=== PATIENT | female | born 1965 | race Caucasian/White ===

== ENCOUNTER → 2022-01-24 16:07 | Outpatient (BNVA) | payer OTHER, SELFPAY | PROVIDERS: PCP Internal Medicine; Visit Provider Physician Assistant | DX: Z13.89 Encounter for screening for other disorder (principal) ==

== ENCOUNTER → 2022-02-22 14:38 | Outpatient (BNVA) | payer OTHER, SELFPAY | PROVIDERS: PCP Internal Medicine; Visit Provider Physician Assistant Surgical | DX: E66.9 Obesity, unspecified (principal) ==

== ENCOUNTER 2022-03-09 06:38 | Outpatient (REF) | payer OTHER, SELFPAY ==
--- NOTE | ~2022-03-09 | XR_ITS ---
EXAMINATION: XR CHEST CLINICAL INFORMATION: Obesity COMPARISON: None TECHNIQUE: 2 views of the chest were obtained. FINDINGS: No significant abnormality is noted involving the heart, lungs, mediastinum, bony thorax or soft tissues. XR/XR chest 2V IMPRESSION: Unremarkable examination.
[2022-03-09 06:55] LABS: MANUAL DIFF FLAG NO
[2022-03-09 07:24] LABS: Basophils Percent Auto 0.6 % (0-2); Eosinophils Absolute Auto 0.2 X10*3/uL (0.0-0.4); Hematocrit 41.8 % (37.0-47.0); Imm Gran Abs Auto 0.01 X10*3/uL (0.00-0.03); Imm Gran Pct Auto 0.2 % (0.0-0.4); Lymphocytes Absolute Auto 2.3 X10*3/uL (1.2-4.9); Lymphocytes Percent Auto 42.8 % (20-40); Mean Corpuscular HGB Conc 33.5 g/dl (31.0-35.0); Mean Corpuscular Hemoglobin 28.6 pg (27.0-33.0); Mean Corpuscular Volume 85.3 fL (80.0-98.0); Mean Platelet Volume 10.5 fL (9.4-12.3); Monocytes Absolute Auto 0.7 X10*3/uL (0.1-1.2); Monocytes Percent Auto 12.3 % (2-11); Neutrophils Absolute Auto 2.2 x10*3/uL (2.0-8.3); Neutrophils Percent Auto 41.1 % (45-73); Platelet Count 316 X10*3/uL (160-400); Red Cell Distribution Width 13.9 % (11.0-16.0); White Blood Count 5.4 X10*3/uL (4.8-10.8)
--- NOTE | 2022-03-09 07:25 | ECG_ITS ---
Test Reason : e66.9 Blood Pressure : / mmHG Vent. Rate : 071 BPM Atrial Rate : 071 BPM P-R Int : 154 ms QRS Dur : 086 ms QT Int : 388 ms P-R-T Axes : 028 -02 038 degrees QTc Int : 421 ms Normal sinus rhythm Normal ECG No previous ECGs available Referred By: Rob Tinajero Electronically Signed By:JADEN JACKSON
[2022-03-09 07:31] LABS: Estimated Average Glucose 128 mg/dL; Hemoglobin A1c % 6.1 %
[2022-03-09 07:45] LABS: Alanine Aminotransferase 52 U/L (0-31); Albumin Level 4.8 g/dL (3.5-5.0); Alkaline Phosphatase 82 U/L (39-117); Anion Gap 16 (12-20); Aspartate Amino Transferase 41 U/L (5-31); Bilirubin Total 0.8 mg/dL (0.0-1.0); Blood Urea Nitrogen 26 mg/dL (9-16); C Reactive Protein 0.37 mg/dL (< or = 0.50); Carbon Dioxide 21 mmol/L (22-29); Chloride 105 mmol/L (96-108); Cholesterol 157 mg/dL; Estimated Glomerular Filt Rate > 60; Glucose Random 91 mg/dL (60-115); HDL Cholesterol 50 mg/dL; Iron 68 mcg/dL (30-160); LDL Cholesterol Calculated 93 mg/dl; Percent Iron Saturation 19 % (15-50); Potassium 4.1 mmol/L (3.3-5.1); Sodium 138 mmol/L (135-145); Total Iron Binding Capacity 357 mcg/dL (228-428); Total Protein 7.5 g/dL (6.5-8.0); Triglycerides 74 mg/dL; Unsaturated Iron Binding 289 ug/dL
[2022-03-09 08:08] LABS: Ferritin 145 ng/mL (10-250); Insulin 15 uU/mL (2-29); TSH reflex Free T4 2.83 uIU/mL (0.32-4.0); Vitamin D 25-OH Total 65.4 ng/mL (>30)
[2022-03-09 08:35] LABS: Folate > 20.0 ng/mL (> or = 4.0); Vitamin B12 > 2000 pg/mL (200-900)
[2022-03-10 13:56] LABS: Calcium (PTHI) 10.5 mg/dL (8.6-10.4); PTHI 59 pg/mL (16-77)
[2022-03-14 06:32] LABS: Zinc 105 mcg/dL (60-130)
[2022-03-14 12:22] LABS: Vitamin B1 15 nmol/L (8-30)
[2022-03-15 14:06] LABS: Vitamin A 50 mcg/dL (38-98)
== END 2022-03-09 06:39 | disposition home or self-care (01) ==
LOC: HO.XRAY 06:38
PROVIDERS: PCP Internal Medicine; Visit Provider Physician Assistant Surgical
DX: Z01.818 Encounter for other preprocedural examination (principal); E66.9 Obesity, unspecified
CPT/HCPCS: 36415; 71046; 80053; 80061; 82306; 82607; 82728; 82746; 83036; 83525; 83540; 83970; 84425; 84443; 84590; 84630; 85025; 86140; 93005

== ENCOUNTER → 2022-03-16 15:00 | Outpatient (BNVA) | payer OTHER, SELFPAY | PROVIDERS: PCP Internal Medicine; Visit Provider Counselor Mental Health | DX: F33.0 Major depressive disorder, recurrent, mild (principal) | CPT/HCPCS: 90791 ==

== ENCOUNTER → 2022-03-27 10:35 | Outpatient (BNVA) | payer OTHER, SELFPAY | PROVIDERS: PCP Internal Medicine; Visit Provider Dietitian, Registered | DX: E66.9 Obesity, unspecified (principal) | CPT/HCPCS: 97802 ==

== ENCOUNTER 2022-03-28 09:55 | Outpatient (REF) | payer OTHER, SELFPAY ==
[2022-04-01 14:11] LABS: H Pylori Breath Test Negative (Negative)
== END 2022-03-28 09:56 | disposition home or self-care (01) ==
LOC: HO.LNP 09:55
PROVIDERS: Visit Provider Physician Assistant Surgical
DX: Z11.0 Encounter for screening for intestinal infectious diseases (principal)
CPT/HCPCS: 83013

== ENCOUNTER 2022-04-19 08:53 | Outpatient (REF) | payer OTHER, SELFPAY ==
--- NOTE | ~2022-04-19 | US_ITS ---
EXAMINATION: US COMPLETE ABDOMEN WITH LIVER ELASTOGRAPHY CLINICAL INFORMATION: Obesity COMPARISON: None. TECHNIQUE: Real-time imaging of the abdominal viscera. Noninvasive ultrasound liver fibrosis assessment is performed using Samira ElastPQ point quantification shear wave elastography (2D-SWE) with a C5-2 MHz transducer. Multiple elastography samples are obtained. FINDINGS: PANCREAS: The visualized pancreatic head and part of the body body are normal in appearance. The remainder of the pancreas is obscured from visualization by the overlying bowel gas. ABDOMINAL AORTA: The proximal, middle, and distal aortic segments are normal in caliber. INFERIOR VENA CAVA: Visualized portions are normal. LIVER: Normal. The liver demonstrates normal size, contour and increased echogenicity. No focal lesion or intrahepatic biliary duct dilatation. The right lobe measures 14.9 cm in length. The left lobe measures 9.0 cm in length. Portal flow is hepatopedal Shear wave liver elastography median stiffness is 2.13 m/s (reference: normal median stiffness is 1.3 m/s or less). IQR/median stiffness to assess sampling precision is 0.04 (reference: good quality data set is IQR/median stiffness of 0.15 or less). GALLBLADDER: Normal. The gallbladder is physiologically distended without evidence of stones, sludge, polyps, wall thickening or pericholecystic fluid. COMMON BILE DUCT: Normal in caliber measuring 0.2 cm in diameter. RIGHT KIDNEY: Normal. No hydronephrosis. No renal calculi or focal parenchymal lesions. The kidney measures 11.4 cm in maximum dimension. LEFT KIDNEY: There is echogenic nonobstructive stone in upper/midpole measuring 0.3 x 0.2 x 0.6 cm. There is mild pelvic fullness. No focal parenchymal lesions. The kidney measures 10.0 cm in maximum dimension. SPLEEN: Normal. The spleen measures 8.9 cm in maximum dimension. FREE FLUID: None. US/US abdomen comp w elastography IMPRESSION: 1. Hepatic steatosis without focal lesion. Mild fullness left renal pelvis. There is nonobstructive echogenic stone upper/midpole measuring 0.6 cm. 2. Liver elastography: Median liver stiffness 2.13 m/s corresponding to cACLD (ruled in) REFERENCE: Society of Radiologists in Ultrasound Liver Stiffness Thresholds (2019): LIVER STIFFNESS THRESHOLDS: *Liver Stiffness equal or less than 1.3 m/s: High probability of being normal. *Liver Stiffness less than 1.7 m/s: In the absence of other known clinical signs, rules out compensated advanced chronic liver disease. *Liver Stiffness 1.7-2.1 m/s: Suggestive of compensated advanced chronic liver disease but need further test for confirmation. *Liver Stiffness over 2.1 m/s: Rules in compensated advanced chronic liver disease. *Liver Stiffness over 2.4 m/s: Suggestive of clinically significant portal hypertension. QUALITY OF DATA SET: *IQR/Median value equal or less than 0.15 implies a quality data set. *IQR/Median value over 0.15 implies a poor quality data set. SIGNIFICANT CHANGE FROM PRIOR EXAM: Significant change if liver stiffness measurement is 10% or greater from prior exam. OTHER CONSIDERATIONS: The stage of liver fibrosis may be overestimated in the setting of acute hepatitis, liver inflammation, elevated liver function tests, hepatic vascular congestion, obstructive cholestasis, non-fasting state, and infiltrative diseases such as amyloidosis and lymphoma. In some patients with NAFLD, the liver stiffness thresholds for compensated advanced chronic liver disease may be lower. In causes other than viral hepatitis and NAFLD, liver stiffness thresholds are not well established.
--- NOTE | ~2022-04-19 | FL_ITS ---
PROCEDURE: XR FLUOROSCOPY UPPER GI WITH AIR CLINICAL INFORMATION: Obesity. COMPARISON: None TECHNIQUE: Routine upper GI air-contrast study was performed in upright and lying position. FINDINGS: Following oral administration of thick barium and effervescent granules there is normal propagation of bolus from the oral cavity through the pharynx, esophagus into stomach without any evidence of obstruction, narrowing or stricture. On placing patient supine and prone lying the course, caliber and peristalsis of the stomach, the duodenal bulb and sweep is normal. The mucosal pattern of the stomach, duodenal bulb and the sweep is normal. There is mild gastroesophageal reflux but no hiatal hernia seen. FLUOROSCOPY TIME: 1.8 minutes. DOSE AREA PRODUCT: 125.673 uGy-m2 (microgray-meter squared). FL/FL upper GI w air IMPRESSION: Mild gastroesophageal reflux without hiatal hernia. Rest of the upper GI exam is unremarkable.
== END 2022-04-19 08:54 | disposition home or self-care (01) ==
LOC: HO.US 08:53
PROVIDERS: Visit Provider Surgery
DX: E66.9 Obesity, unspecified (principal)
CPT/HCPCS: 74246; 76705; 76981

== ENCOUNTER 2022-05-23 08:09 | Inpatient (IN) | payer OTHER, SELFPAY ==
[2022-05-10 09:40] VITALS: BMI 33.3
[2022-05-12 09:55] LABS: MANUAL DIFF FLAG NO
[2022-05-12 10:10] LABS: INTERNATIONAL NORM RATIO 1.3 (0.9-1.1)
[2022-05-12 10:13] LABS: Partial Thromboplastin Time 40.3 SEC (26.0-36.4)
[2022-05-12 10:15] LABS: Basophils Percent Auto 0.7 % (0-2); Eosinophils Absolute Auto 0.1 X10*3/uL (0.0-0.4); Eosinophils Percent Auto 3.3 % (0-4); Hematocrit 42.7 % (37.0-47.0); Imm Gran Abs Auto 0.01 X10*3/uL (0.00-0.03); Imm Gran Pct Auto 0.2 % (0.0-0.4); Lymphocytes Absolute Auto 1.8 X10*3/uL (1.2-4.9); Lymphocytes Percent Auto 42.9 % (20-40); Mean Corpuscular HGB Conc 32.8 g/dl (31.0-35.0); Mean Corpuscular Hemoglobin 28.3 pg (27.0-33.0); Mean Corpuscular Volume 86.3 fL (80.0-98.0); Mean Platelet Volume 10.7 fL (9.4-12.3); Monocytes Absolute Auto 0.6 X10*3/uL (0.1-1.2); Monocytes Percent Auto 15.1 % (2-11); Neutrophils Absolute Auto 1.6 x10*3/uL (2.0-8.3); Neutrophils Percent Auto 37.8 % (45-73); Platelet Count 265 X10*3/uL (160-400); Red Blood Count 4.95 X10*6/uL (4.20-5.50); Red Cell Distribution Width 14.4 % (11.0-16.0); White Blood Count 4.2 X10*3/uL (4.8-10.8)
[2022-05-12 10:30] LABS: Estimated Average Glucose 114 mg/dL; Hemoglobin A1c % 5.6 %
[2022-05-12 10:42] LABS: Alanine Aminotransferase 21 U/L (0-31); Albumin Level 4.6 g/dL (3.5-5.0); Alkaline Phosphatase 74 U/L (39-117); Anion Gap 16 (12-20); Aspartate Amino Transferase 24 U/L (5-31); Bilirubin Total 1.6 mg/dL (0.0-1.0); Blood Urea Nitrogen 21 mg/dL (9-16); C Reactive Protein 0.36 mg/dL (< or = 0.50); Calcium 9.6 mg/dL (8.4-10.2); Carbon Dioxide 22 mmol/L (22-29); Chloride 107 mmol/L (96-108); Cholesterol 168 mg/dL; Creatinine Clr Calc Pharmacy 94.2; Estimated Glomerular Filt Rate > 60; Glucose Random 98 mg/dL (60-115); HDL Cholesterol 48 mg/dL; LDL Cholesterol Calculated 104 mg/dl; Sodium 141 mmol/L (135-145); Total Protein 7.2 g/dL (6.5-8.0); Triglycerides 82 mg/dL
--- NOTE | 2022-05-20 15:31 | MHC.SHP ---
Pre-Procedural Eval Section A Date of Service: 05/20/22 The patient is an INPATIENT: Yes The History & Physical has been completed within 30 days and I have reviewed it.: Yes Section B Chief Complaint: obesity Relevant Family History (Specify if Yes): No Relevant Social History: None Present Medications: None Medical History: No relevant PMH History of Previous Operations: No relevant previous surgery Allergies: Allergies Allergy/AdvReac Type Severity Reaction Status Date / Time Penicillins AdvReac Severe Rash Verified 05/10/22 09:20 Review of Systems Sugical H&P ROS: Negative: Constitution, Cardiovascular, Respiratory, Neurological, Psychiatric, Hem-Onc, Allergic/Immunologic, Gastrointestinal, Genitourinary, Musculoskeletal, Integumentary, Endocrine and Eyes/Ears/Nose/Throat Exam Surgical H&P Exam: Normal: HEENT, Normal: Heart, Normal: Lungs, Normal: Extremities, Normal: Abdomen, Normal: Skin and Normal: Neurological Plan Diagnosis/Plan: Unchanged I have reviewed the history and physical and performed a pertinent physical examination on my patient. No changes have occurred unless specified.
[2022-05-22 14:27] LABS: COVID-19 Test Negative (Negative); IDNOW Serial# 9DD0AD1C
[2022-05-23] VITALS (12 sets, daily range): BP systolic 106–146; BP diastolic 59–83; PULSE 68–93; RESP 12–18; TEMP 36–36.8; O2SAT 94–98
[2022-05-23] MEDS: Lactated Ringers 1,000 ML 999 ML IV (09:01)
--- NOTE | 2022-05-23 09:44 | P.CONAN_ITS ---
HPI - Anesthesia Eval Consult details Narrative: 56 yo female patient for EGD, laparoscopic sleeve gastrectomy, possible diaphragmatic hernia repair, possible ventral hernia repair, possible open PMFSH Active Problems Active Problems: All Active Problems (Updated 05/10/22 @ 09:55 by Chaparrita Arredondo RN) HTN (hypertension) (Acute) GERD (gastroesophageal reflux disease) (Acute) Depression (Acute) Anxiety (Acute) Hypertriglyceridemia (Acute) Obesity (Acute) BMI 39.0-39.9,adult (Acute) BMI 37.0-37.9, adult (Acute) Major depressive disorder, recurrent, mild (Acute) Pre-op evaluation (Acute) Denies NIKUNJ. Snores but no sleep study Past Medical History Medical History Anxiety and depression History of COVID-19 HTN (hypertension) Obesity Seasonal asthma Family History Family history of problems with anesthesia: No Surgical History Surgical History Hx of colonoscopy Hx of oral surgery Hx of rhinoplasty Hx of tonsillectomy History of Problems with Anesthesia: No Social History Social History Are you a primary child care supervisor to a significant other at home: No Do you presently have visiting nurse or other home services: No Patient Tobacco Use Status: Never used Tobacco Use of substances other than those prescribed or required for medical reasons: No Have you been hit, kicked, punched, or otherwise hurt by someone within the past year? If so, by whom?: No Are you DNR?: No Advance Directives: No Advance Directives Information Provided: Yes Advance Directives on File: No Recently lost weight without trying: No How much weight loss: 34pounds or more Eating poorly because of decreased appetite: No Nutrition screen score: 4 Nutrition Risks: No Nutritional Risk Patient : No Meds Allergies Allergy/AdvReac Type Severity Reaction Status Date / Time Penicillins AdvReac Severe Rash Verified 05/23/22 09:31 Active Medications: Current Medications Albuterol Sulfate (Albuterol Sulfate (0.083%) 2.5 Mg/3 Ml Vial.Neb) 2.5 mg INHALE ONCE PRN PRN Reason: Shortness of Breath/Wheezing Lactated Ringer's (Lr) 1,000 mls @ 999 mls/hr IV .Q1H1M [facility] Stop: 05/23/22 10:15 Last Admin: 05/23/22 09:01 Dose: 999 mls/hr Lactated Ringer's (Lr) 1,000 mls @ 50 mls/hr IVCONT .Q20H [facility] Home Medications Medication Instructions Recorded Confirmed Last Taken Type biotin 1,000 mcg chewable tablet 1,000 mcg PO DAILY 01/26/22 05/10/22 05/08/22 History calcium carbonate 600 mg calcium 600 mg PO DAILY 01/26/22 05/10/22 05/08/22 Hist ory (1,500 mg) tablet (Calcium) cholecalciferol (vitamin D3) 25 25 mcg PO DAILY 01/26/22 05/10/22 05/08/22 History mcg (1,000 unit) capsule desvenlafaxine succinate 50 mg 50 mg PO DAILY 01/26/22 05/10/22 Unknown History tablet,extended release 24 hr (Pristiq) diphenhydramine HCl 50 mg capsule 50 mg PO BEDTIME 01/26/22 05/10/22 Unknown History (NightTime Sleep Aid (diphenhydramine)) fluticasone 500 mcg-salmeterol 50 1 inh inhalation BID 01/26/22 05/10/22 Unknown History mcg/dose blistr powdr for inhalation (Advair Diskus) lisinopril 2.5 mg tablet 2.5 mg PO DAILY 01/26/22 05/10/22 Unknown History omega-3 fatty acids 1,000 mg 1,000 mg PO DAILY 01/26/22 05/10/22 05/08/22 History capsule Exam Exam Date and Time: May 23, 2022 0945 Height,Weight and Vital Signs: Height 5 ft 9 in Weight 102.512 kg Last Vital Signs Temp 97.9 F 05/23/22 09:08 Pulse 74 05/23/22 09:08 Resp 18 05/23/22 09:08 BP 116/75 05/23/22 09:08 Pulse Ox 96 05/23/22 09:08 O2 Del Method 05/23/22 09:08 Pertinent Lab Results Pertinent Lab Results: Laboratory Tests 05/12/22 05/12/22 05/12/22 09:47 09:54 09:54 WBC 4.2 L RBC 4.95 Hgb 14.0 Hct 42.7 MCV 86.3 MCH 28.3 MCHC 32.8 RDW 14.4 Plt Count 265 MPV 10.7 Immature Gran % (Auto) 0.2 Neut % (Auto) 37.8 L Lymph % (Auto) 42.9 H Sac % (Auto) 15.1 H Eos % (Auto) 3.3 Baso % (Auto) 0.7 Lymph # (Auto) 1.8 Sac # (Auto) 0.6 Eos # (Auto) 0.1 Baso # (Auto) 0.0 Abs Immat Gran (auto) 0.01 Absolute Neuts (auto) 1.6 L Absolute Nucleated RBC 0.000 Nucleated RBC % (auto) 0.0 PT 15.0 H INR 1.3 H APTT 40.3 H Sodium Potassium Chloride Carbon Dioxide Anion Gap BUN Creatinine Estim Creat Clear Calc Estimated GFR Random Glucose Estimat Average Glucose Hemoglobin A1c % Calcium Total Bilirubin AST ALT Alkaline Phosphatase C-Reactive Protein Total Protein Albumin Triglycerides Cholesterol LDL Cholesterol, Calc HDL Cholesterol TSH COVID-19 (JESSICA) COVID-19 Clin Com Blood Type B Positive Antibody Screen NEGATIVE 05/12/22 05/12/22 05/22/22 09:54 09:54 14:00 WBC RBC Hgb Hct MCV MCH MCHC RDW Plt Count MPV Immature Gran % (Auto) Neut % (Auto) Lymph % (Auto) Sac % (Auto) Eos % (Auto) Baso % (Auto) Lymph # (Auto) Sac # (Auto) Eos # (Auto) Baso # (Auto) Abs Immat Gran (auto) Absolute Neuts (auto) Absolute Nucleated RBC Nucleated RBC % (auto) PT INR APTT Sodium 141 Potassium 4.0 Chloride 107 Carbon Dioxide 22 Anion Gap 16 BUN 21 H Creatinine 0.86 Estim Creat Clear Calc 94.2 Estimated GFR > 60 Random Glucose 98 Estimat Average Glucose 114 Hemoglobin A1c % 5.6 Calcium 9.6 Total Bilirubin 1.6 H AST 24 D ALT 21 Alkaline Phosphatase 74 C-Reactive Protein 0.36 Total Protein 7.2 Albumin 4.6 Triglycerides 82 Cholesterol 168 LDL Cholesterol, Calc 104 HDL Cholesterol 48 TSH 2.60 COVID-19 (JESSICA) Negative COVID-19 Clin Com See Note Blood Type Antibody Screen Airway Mallampati Class: II TM Dist: >3cm Neck ROM: Full Loose/Missing/Broken Teeth: No (Patient denies broken or loose teeth ) Heart: RRR Lungs: CTAB Assessment and Plan Assessment Anesthesia Assessment: Anesthesia Plan Discussed and Chart Reviewed Final Anesthetic Review Family History of Problems with Anesthesia: No History of Problems with Anesthesia: No NPO: Yes ASA Class: III Final Preanesthetic Review: No Changes in Pt Med Stat, Meds/Allgs Chart Reviewed, Consent Obtained/Reviewed and Anes Risks/Benef Reviewed Patient Risk: Intermediate Procedure Risk: Intermediate Assessment/Block/Sedation in SS: Assess/Block/Sedation-SS Anesthetic Plan Anesthetic Plan: GA Disposition: Standard PACU and Inp. Admit - Standard Bed
--- NOTE | 2022-05-23 10:45 | PM.PNGS ---
Subjective Subjective Date of Service: 05/24/22 Interval history: Patient has mild incisional pain, but was able to ambulate and use the incentive spirometer. She is tolerating phase 1 bariatric diet Physical Exam Vital Signs: Vital Signs: Last Vital Signs Temp 97.9 F 05/23/22 09:08 Pulse 74 05/23/22 09:08 Resp 18 05/23/22 09:08 BP 116/75 05/23/22 09:08 Pulse Ox 96 05/23/22 09:08 O2 Del Method 05/23/22 09:08 BMI result Body Mass Index 33.3 GI: Inspection: Yes normal to inspection, Yes incision (dry, clean and intact) and Yes obesity Extrem: Right lower extremity: normal to inspection (no calf tenderness) Left lower extremity: normal to inspection (no calf tenderness) Objective Data Active Medications Albuterol Sulfate (Albuterol Sulfate (0.083%) 2.5 Mg/3 Ml Vial.Neb) 2.5 mg INHALE ONCE PRN PRN Reason: Shortness of Breath/Wheezing Fentanyl (Fentanyl Citrate/Pf 100 Mcg/2 Ml Vial) 25 mcg IVPUSH Q5M PRN; Protocol PRN Reason: Pain, Moderate (Pain Scale 4-6 Hydromorphone HCl (Hydromorphone Hcl 0.5 Mg/0.5 Ml Syringe) 0.25 mg IVPUSH Q5M PRN; Protocol PRN Reason: Pain, Severe (Pain Scale 7-10) Lactated Ringer's (Lr) 1,000 mls @ 50 mls/hr IVCONT .Q20H [facility] Promethazine HCl 6.25 mg/ (Sodium Chloride) 50.25 mls @ 201 mls/hr IV ONCE PRN PRN Reason: Nausea and Vomiting Ondansetron HCl (Ondansetron Hcl 4 Mg/2 Ml Vial) 4 mg IVPUSH ONCE PRN PRN Reason: Nausea and Vomiting Labs CBC & Chem 7: 05/24/22 05:35 05/24/22 05:35 Labs: Laboratory Results - last 24 hr 05/22/22 14:00 COVID-19 (JESSICA) Negative COVID-19 Clin Com See Note Procedures Date of Service Date of Service: 05/24/22 Progress Note: A&P Assessment and plan (1) Obesity: Status: Acute Assessment and Plan: s/p laparoscopic sleeve gastrectomy and gastropexy Doing well Check am labs. If OK, will discharge home? (2) BMI 32.0-32.9,adult: Status: Acute (3) HTN (hypertension): Status: Acute (4) GERD (gastroesophageal reflux disease): Status: Acute (5) Depression: Status: Acute (6) Anxiety: Status: Acute (7) Hypertriglyceridemia: Status: Acute (8) Asthma: Status: Acute (9) Liver fibrosis: Status: Acute (10) Nephrolithiasis: Status: Acute (11) S/P laparoscopic sleeve gastrectomy: Status: Acute Time Spent With Patient Time: Total time spent is greater than 50% in coordination of care (as documented) at patient's floor/unit and/or counseling patient: Quality Stroke Does the patient have a stroke diagnosis?: No VTE Prior VTE?: No VTE Risk Level:: Surgical - moderate VTE Device Contraindication: N/A - Device Ordered VTE Drug Contraindication: Treatment Not Indicated
--- NOTE | 2022-05-23 10:47 | P.BOP_ITS ---
Brief Operative Note Date of Service: 05/23/22 Pre-op diagnosis: Severe obesity with comorbidities (see below) Post-op diagnosis: same Procedure: INITIAL PATIENT BMI ON PRESENTATION AT OUR OFFICE: 43.3 kg/m2 LAST BMI BEFORE SURGERY: 32.8 kg/m2 COMORBIDITIES: hypetension, GERD, liver fibrosis, asthma, depression, anxiety, nephrolithiasis ?The patient presented to the Weight Management Program with significant obesity that was negatively impacting the patient's comorbidities as listed above.? The program is a phased program with a special focus on preoperative medical weight management to promote substantial weight loss and prepare the patients for the second phase of the program: bariatric surgery. The patient participated in an intensive weekly lifestyle ?intervention and exercise program during which the patient ?has lost between the initial office visit and the last preoperative visit 43.3lbs, or 16.36% of initial actual body weight. It was deemed appropriate for the patient to now have bariatric surgery. In light of the c urrent Covid-19 pandemic and the well documented strong association of obesity and increased risk of worse outcomes if infected with Covid-19 (REFERENCES: https://pubmed.ncbi.nlm.nih.gov/46381542/ ,? https://pubmed.ncbi.nlm.nih.gov/40421006/ ), any delay in undergoing bariatric surgery may lead to the patient's worsening health condition and increased?risk of more severe Covid-19 disease if infected. In addition a recent?study from [facility] published in [employer] on 09/26/2021 ([email or web address].pdf) found that, among patients with obesity, substantial weight loss achieved with surgery was associated with improved outcomes of COVID-19 infection. The findings suggest that obesity can be a modifiable risk factor for the severity of COVID-19 infection. In addition, the patient met the BMI-criteria for bariatric surgery based on the BMI on initial presentation. The patient should not be penalized for achieving such weight loss because ?it is not sustainable long-term without surgical intervention and it was achieved in preparation for bariatric surgery ?under my direction and based on my published research ([email or web address]).[email or web address] and? https://www.soard.org/article/D7103-9343(49)70737-X/pdf ) ?that a 10% preoperative weight loss improves long-term weight loss after surgery and reduces perioperative complications.? Insurance carriers such as [facility] have endorsed my recommendations ?and have included in their policies criteria to include a 10% preoperative weight loss requirement. PROCEDURE: Esophago-gastroscopy, llaparoscopic sleeve gastrectomy and laparoscopic gastropexy INDICATIONS: This is a 56 year-old female who was electively scheduled for laparoscopic, possibly open sleeve gastrectomy. The risks and complications of the procedure were discussed with the patient in advance, particularly the possibility of ; pulmonary embolism; staple line leak; bleeding; GERD; cardiac, pulmonary, or renal complications; as well as long-term problems such as insufficient weight loss, vitamin deficiency, strictures, or ulcers. The patient understood all the risks, and was in agreement to proceed with surgery. DESCRIPTION OF PROCEDURE: After informed consent was obtained from the patient, the patient was given preoperative antibiotics, and was transferred to the operating room. After successful induction of general anesthesia, pneumatic compression devices were placed on both lower extremities. An upper endoscopy was performed next. The oropharynx and esophagus appeared to be within normal limits. There was no diaphragmatic hernia present consistent with the findings of the preoperative upper GI. The stomach was entered. Then after all fluid and air were suctioned and the stomach was fully decompressed, the scope was withdrawn and secured in the mid esophagus. The patient was then prepped and draped in the usual sterile manner, and abdominal access was established at the right upper quadrant with the Rosa technique. A 12 mm blunt port was inserted, and the abdomen was insufflated with CO2 to a pressure of 15 mmHg. Under direct visualization, additional ports were placed, specifically two 5 mm Versi-step ports to the left upper quadrant, and a 5 mm Versi-Step port to the right upper quadrant. 1% lidocaine plain was used to infiltrate all port sites as well as all fascia defects. Using the EndoClose suture passer device, I placed a #1 Polysorb tie across the falciform ligament in order to retract it up against the abdominal wall and prevent injury of the ligament with our instruments during the procedure. Following that, the patient was placed in a steep reverse Trendelenburg position. An additional 5 mm port was placed to the right flank for the Mediflex retractor that was used to retract the left lobe of the liver. The gastro-esophageal fat pad was opened with the ultrasonic device (Thunderbeat, Olympus) and the anterior esophagus and hiatus were exposed. The angle of His was opened with the ultrasonic device the fundus of the stomach from any diaphragmatic and splenic attachments. I then opened the gastrocolic ligament between the transverse colon and the greater curvature of the stomach with the ultrasonic device to enter the lesser sac and facilitate the ligation of the short gastric vessels. I started at a mid-point along the greater curvature and using the Thunderbeat, all short gastric vessels were divided all the way to the angle of His until the left yeimi was completely dissected at its entirety. I then divided the gastro-colic ligament distally to a distance of about 3-4 cm proximal to the pylorus. The stomach was then divided transversely with one Endo GIOVANY-45 purple, one GIOVANY- 45 orange load and three GIOVANY-60 articulating orange loads using the AEON stapler and loads. Every effort was made that the gastric sleeve had a tubular shape and an even caliber throughout. Once the sleeve resection was completed, the staple line of the gastric sleeve was reinforced with Hemoclips. The resected stomach was retrieved without difficulty from the Rosa port. A gastropexy was then performed in order to prevent postoperative GERD and partial gastric volvulus. Several interrupted 2.0 Surgidac sutures were placed between the sleeve's staple line and the previously divided greater omentum and gastro-colic ligament using the Endo-Stitch device. ?An upper endoscopy was performed. There was no narrowing at the GE junction. The scope was easily advanced all the way to the pylorus which was clearly visualized. There was no narrowing anywhere and the sleeve's caliber was even throughout. The sleeve's staple line was inspected and there was no evidence of ischemia, bleeding or dehiscence. At that point the gastroscope was withdrawn from the patient?s mouth while we were decompressing the bowel and the stomach from any remaining air. I looked into the lesser sac to see how the sleeve was situating and it was situating well. There was no bleeding from the staple line, spleen, or short gastric vessels. The Mediflex retractor was removed, and the undersurface of the liver was inspected and there was no bleeding. The patient was placed in supine position. I closed the fascial defect of the 12 mm port site with a figure of eight #1 Polysorb suture. Then 60ml of Ropivacaine plain with 10 mg of Dexamethasone were used to infiltrate the fascial closure as well as all skin incisions. A total of ml of Zynrelef was applied in the Rosa wound. At this point, the abdomen was deflated, all ports were removed under direct vision, and no bleeding was noted from any of the port sites. The skin incisions were irrigated with saline and were closed with 4-0 absorbable monofilament sutures. Steri-Strips and OpSites were used to cover all incisions. The patient was extubated and was transferred in stable condition to the recovery room for further care. I was present and performed all capellan parts of the procedure. Mr. Tinajero was the certified surgical tech/first assistant. There were no residents to assist with this case. Waylon Kumar MD, PhD, FACS Surgeon: Cristian Kumar MD Anesthesia: GETA, local and other (TAP block and Zynrelef) Was an Airborne And Air Delivery Specialist used for this Procedure?: No Airborne And Air Delivery Specialist: Rob Tinajero Estimated blood loss (mL): 10 Urine output (mL): 0 (No Phan to record) Pathology: other (Stomach) Condition: stable Disposition: PACU
[2022-05-23] MEDS: levoFLOXacin/D5W 500 MG/100 ML PIGGYBACK 100 MG IV (11:06)
--- NOTE | 2022-05-23 13:04 | P.DS_ITS ---
DS: Providers Provider Date of Service: 05/24/22 Date of admission: 05/23/22 08:09 Primary care physician: Unknown Physician DS: Diagnosis Discharge Diagnosis (1) Obesity: Status: Acute (2) BMI 32.0-32.9,adult: Status: Acute (3) HTN (hypertension): Status: Acute (4) GERD (gastroesophageal reflux disease): Status: Acute (5) Depression: Status: Acute (6) Anxiety: Status: Acute (7) Hypertriglyceridemia: Status: Acute (8) Asthma: Status: Acute (9) Liver fibrosis: Status: Acute (10) Nephrolithiasis: Status: Acute (11) S/P laparoscopic sleeve gastrectomy: Status: Acute DS: Summary Hospital Course Hospital Course: ADMITTING DIAGNOSIS: obesity, htn, anxiety, depression ? DISCHARGE DIAGNOSIS: same, s/p laparoscopic sleeve gastrectomy ? PAST SURGICAL HISTORY: rhinoplasty, tonsillectomy ? PROCEDURE: upper endoscopy, laparoscopic sleeve gastrectomy ? DISCHARGE SUMMARY: ? History of Present Illness: ? The patient is a?56 year-old woman with a BMI of?39 kg/m2 and associated co- morbidities as described above. The patient had extensive work-up,lost?38 lbs preoperatively and was electively scheduled for laparoscopic, possible open sleeve gastrectomy and gastropexy. Risks and complications of the surgery were discussed with the patient in advance, particularly the possibility of , pulmonary embolism, anastomotic leak, bleeding, bowel injury, GERD, cardiac, renal or pulmonary complications. The patient understood all the risks and was in agreement with the surgical plan. ? Hospital Course: ? The patient underwent an uneventful laparoscopic sleeve gastrectomy with gastropexy on the day of admission. Postoperatively, the patient was transferred to the surgical floor. The patient received IV Acetaminophen and IV dilaudid for pain control. Patient was started on bariatric phase 1 diet POD #0. On postoperative day one, the patient was feeling well without nausea, vomiting, fevers, or tachycardia. The patient had some mild incisional pain and the abdomen was soft. ? On the morning of postoperative day one, the patient was continued on 1 ounce of water or ice every half hour. During the day, the patient did fairly well, having some incisional pain, but able to ambulate adequately and to tolerate li quids well. ? Since the patient is doing well, we decided that the patient was ready to be discharged. The patient was given instructions to follow-up with me next week and to call my office for any fever over 101, persistent abdominal pain, nausea, vomiting, GERD, symptoms of DVT such as calf tenderness, or leg swelling, or pulmonary embolism such as chest pain or shortness of breath. The patient was also instructed to drink 40-60 ounces of liquids per day using the 1-ounce cups. The patient had been given prescriptions for Tylenol for pain, Zofran prn for nausea, and pantoprazole and carafate previously. The patient was encouraged to ambulate and use the incentive spirometer. The patient was allowed to shower, but no baths, and encouraged to stay active at home. All of these instructions were given to the patient personally. All questions were answered and the patient understood all instructions, the instructions were also given to the patient in print. Time Spent with Patient Time attestation: Total time spent providing and/or coordinating discharge services: Discharge coordination time: Less than 30 minutes Quality: Safe Use of Opioids Does Pt have an Active Cancer Diagnosis on the Problem List?: No Quality: Stroke Does the patient have a stroke diagnosis?: No Physical Exam Vital Signs: Vital Signs: Last Vital Signs Temp 97.9 F 05/23/22 09:08 Pulse 74 05/23/22 09:08 Resp 18 05/23/22 09:08 BP 116/75 05/23/22 09:08 Pulse Ox 96 05/23/22 09:08 O2 Del Method 05/23/22 09:08 BMI result Body Mass Index 33.3 DS: Data Data Completed and Pending Pending studies at discharge: Pending at discharge 05/23/22 12:15 Surgical [PTH] Routine Labs on day of discharge: Laboratory Results - last 24 hr 05/22/22 14:00 COVID-19 (JESSICA) Negative COVID-19 Clin Com See Note Discharge Plan Discharge Patient Disposition: Home, Self-Care Discharge Diagnosis: s/p laparoscopic sleeve gastrectomy Referrals: Physician,Unknown J [Primary Care Provider] - 1 Week Discharge Medications: Continued desvenlafaxine succinate [Pristiq] 50 mg tablet extended release 24 hr 50 mg PO DAILY omega-3 fatty acids 1,000 mg capsule 1,000 mg PO DAILY diphenhydramine HCl [NightTime Sleep Aid (diphen)] 50 mg capsule 50 mg PO BEDTIME fluticasone propion-salmeterol [Advair Diskus] 500-50 mcg/dose blister with device 1 inh inhalation BID Label Comments: Takes prn- Seasonal asthma pantoprazole 40 mg tablet,delayed release (DR/EC) 40 mg PO DAILY Qty: 30 3RF sucralfate 100 mg/mL suspension 10 ml PO BID Qty: 400 3RF ondansetron HCl 4 mg tablet 4 mg PO Q6H PRN (Reason: nausea and vomiting) Qty: 20 0RF Held lisinopril 2.5 mg tablet 2.5 mg PO DAILY Hold Instructions: Resume on 05/25/22. Do not take the Lisinopril if blood pressure is less than 120/70 Send your blood pressure daily to Dr. Kumar and don't take the Lisinopril before he responds Discontinued biotin 1,000 mcg tablet,chewable 1,000 mcg PO DAILY cholecalciferol (vitamin D3) 25 mcg (1,000 unit) capsule 25 mcg PO DAILY calcium carbonate [Calcium 600] 600 mg calcium (1,500 mg) tablet 600 mg PO DAILY polyethylene glycol 3350 [Miralax] 17 gram powder in packet 17 g PO DAILY Qty: 14 0RF Rx Instructions: 7 packets dissolved in 8 oz water each taken on 05/21/22. Repeat process on 05/22/22 Discharge Orders: Discharge Order (Routine); Ordered 05/24/22 Ordered By: Cristian Kumar Activity on Discharge: No heavy lifting Stand Alone Forms: Patient Portal Discharge page Care Plan Goals: weight loss Health Concerns: obesity Plan of Treatment: No tub baths, sex or returning to work until discussed at first post op appointment. No exercise, alcohol, tobacco or illegal drug use. Continue to use incentive spirometer hourly while awake. Walk in home for 5- 10 minutes every 2 hours during the first week. Follow all instructions in the bariatric handbook and call with any questions.Discharge Instructions 1. Please call your doctor or come back to the emergency room should any new symptoms arise. 2. You will receive a courtesy call from [facility] 24-48 hours after discharge. 3. Activity: abstain from alcohol, practice limited stair climbing, no bending, no driving, no exercise, no illicit substances, no lifting, no sex, no tub bath, no work. 4. Diet: continue as discussed with Dr. Kumar. 5. Dressing Change/Wound Care: Your incision is covered by clear bandages and guaze underneath. If the area is tender, you may apply an ice pack for short intervals (no more than 20 minutes on, followed by at least 20 minutes off). Do not apply heat. Do not use creams, lotions, or topical antibiotics unless instructed to do so by your surgeon. These can cause infection or allergic reaction. 6. Call your doctor if: - Your temperature exceeds 101.5 F - You experience excessive pain or swelling - You have an unexpected reaction to medication - You have excessive bleeding - You experience continued vomiting/nausea - Your incision begins to separate - Your incision shows signs of infection such as increased redness, swelling, excessive pain, heat, or drainage (light blood or clear fluid is normal) 7. General instructions: No lifting greater than 5 lbs for the next 4 weeks[address] driving within 24 hours of taking narcotic pain medications. If you do not move your bowels in the next 2 days, please take milk of magnesia over the counter. Please follow the post op diet and do not advance your diet until you are seen in the office in about 2 weeks. Please walk around your home every hour or two to prevent blood clots from forming in your legs. You do not need to wake from sleeping to walk. Please sleep in a bed or couch to prevent kinking at the hips and knees. Please take your incentive spirometer (your lung guidance and control system engineer) home with you and use it for the next few days to prevent pneumonias. You may shower, no hot tubs, baths or swimming pools. Please call the office with any questions or concerns such as increasing abdominal pain, fever, chills, shortness of breath, chest pain, leg pain or swelling, or redness or drainage from your incisions. Please stay on stage 3 diet which includes sugar free clear liquids such as ice pops and jello and broth and crystal light. Avoid all carbonation. Please drink 3 protein shakes with at least 25-30 grams of protein daily or 3 of the Celebrate 4:1 shakes which can be purchased in our office. The Celebrate shakes have all of the bariatric vitamins you need if you consume these shakes. If you are drinking other protein shakes, you will need to purchase the Celebrate multivitamins and calcium that we provide in the office (they will provide all the vitamins you need). Please make sure you are consuming at least 40-60 ounces of water in addition to your 3 protein shakes daily. Do not hesitate to contact the office with any questions at . The patient's medical history has been reviewed and they are considered low risk for post op DVT and therefore DVT prophylaxis is not considered necessary. Travel after surgery was reviewed. The patient has not disclosed any travel plans during the first 30 days after surgery and they have been advised that within the first 30 days after surgery any bus, plane, train or car travel over 2 hours in duration is contraindicated due to the possibility of developing blood clots from immobility. Any travel, needs to include periods of ambulation of 10 minutes in duration every 2 hours.? The patient was instructed to discuss any plans for travel during this period with their bariatric surgeon. Assessment: stable s/p laparoscopic sleeve gastrectomy Discharge Date/Time: 05/24/22 09:40
[2022-05-23] MEDS: Famotidine/PF 20 MG/2 ML VIAL IVPUSH ×2 (13:30→20:08)
[2022-05-23] MEDS: Metoclopramide HCl 10 MG/2 ML VIAL IVPUSH (13:33)
[2022-05-23 13:57] LABS: Hematocrit 39.6 % (37.0-47.0); Hemoglobin 12.9 g/dl (12.0-16.0)
[2022-05-23 14:12] LABS: Anion Gap 18 (12-20); Blood Urea Nitrogen 17 mg/dL (9-16); Calcium 8.9 mg/dL (8.4-10.2); Carbon Dioxide 20 mmol/L (22-29); Chloride 105 mmol/L (96-108); Estimated Glomerular Filt Rate > 60; Glucose Random 119 mg/dL (60-115); Potassium 4.2 mmol/L (3.3-5.1); Sodium 139 mmol/L (135-145)
[2022-05-23] MEDS: Lactated Ringers 1,000 ML 125 ML IVCONT ×2 (14:33→20:10)
[2022-05-23] MEDS: 0.9 % Sodium Chloride Flush 3 ML SYRINGE IVFLUSH (20:08)
[2022-05-23] MEDS: ondansetron HCL 4 MG/2 ML VIAL IVPUSH (22:24)
[2022-05-24] MEDS: Lactated Ringers 1,000 ML 125 ML IVCONT (03:43)
[2022-05-24 03:45] VITALS: BP 137/79; PULSE 60; RESP 18; TEMP 36.3; O2SAT 94
[2022-05-24 05:52] LABS: MANUAL DIFF FLAG NO
[2022-05-24 05:58] LABS: Basophils Percent Auto 0.1 % (0-2); Hematocrit 36.9 % (37.0-47.0); Hemoglobin 12.2 g/dl (12.0-16.0); Imm Gran Abs Auto 0.04 X10*3/uL (0.00-0.03); Imm Gran Pct Auto 0.4 % (0.0-0.4); Lymphocytes Absolute Auto 1.4 X10*3/uL (1.2-4.9); Lymphocytes Percent Auto 13.5 % (20-40); Mean Corpuscular HGB Conc 33.1 g/dl (31.0-35.0); Mean Corpuscular Hemoglobin 28.8 pg (27.0-33.0); Mean Corpuscular Volume 87.2 fL (80.0-98.0); Mean Platelet Volume 11.1 fL (9.4-12.3); Monocytes Percent Auto 10.3 % (2-11); Neutrophils Absolute Auto 7.7 x10*3/uL (2.0-8.3); Neutrophils Percent Auto 75.7 % (45-73); Platelet Count 215 X10*3/uL (160-400); Red Blood Count 4.23 X10*6/uL (4.20-5.50); Red Cell Distribution Width 14.5 % (11.0-16.0); White Blood Count 10.1 X10*3/uL (4.8-10.8)
[2022-05-24 06:16] LABS: Anion Gap 18 (12-20); Blood Urea Nitrogen 13 mg/dL (9-16); Calcium 9.5 mg/dL (8.4-10.2); Carbon Dioxide 21 mmol/L (22-29); Chloride 106 mmol/L (96-108); Creatinine Clr Calc Pharmacy 101.2; Estimated Glomerular Filt Rate > 60; Glucose Random 117 mg/dL (60-115); Potassium 4.7 mmol/L (3.3-5.1); Sodium 140 mmol/L (135-145)
[2022-05-24] MEDS: ondansetron HCL 4 MG/2 ML VIAL IVPUSH (06:29)
[2022-05-24 06:47] VITALS: BP 100/57; PULSE 62; RESP 18; TEMP 36.1; O2SAT 95
[2022-05-24] MEDS: Famotidine/PF 20 MG/2 ML VIAL IVPUSH (07:16)
--- NOTE | 2022-05-24 08:58 | MHC.CM.PN ---
PATIENT LIVES WITH FAMILY, IS INDEPENDENT HOME AND COMMUNITY, DENIES USE OF DME OR RECEIVING HOME SERVICES, EDUCATED REGARDING HCP, SHE DECLINED TO COMPLETE AT THIS TIME, DECLINED TO ANSWER ABOUT VACCINATION STATUS OR PCP, FAMILY WILL TRANSPORT HOME. D/C PLAN: HOME SELF-CARE
--- NOTE | 2022-05-24 09:32 | MHC.CM.PN ---
PATIENT HAS BEEN MEDICALLY CLEARED FOR DISCHARGE TODAY; DISCHARGE DISPOSITION IS HOME SELF-CARE. FAMILY WILL TRANSPORT HOME.
--- NOTE | 2022-05-24 10:31 | HO.POSTANES ---
Post Anesthesia Evaluation Post Anesthesia Evaluation Vital Signs: Vital Signs Temp Pulse Resp BP Pulse Ox O2 Del Method 05/24/22 06:47 97 F 62 18 100/57 L 95 Room Air 05/24/22 03:45 97.4 F 60 18 137/79 94 Room Air 05/23/22 23:45 97.7 F 68 18 124/62 94 Room Air Anesthesia: General Endotracheal-GETA Mental Status: Awake Pain Control: Satisfactory (mild incisional pain) Nausea/Vomiting: None Hydration: Adequate Anesthesia-Related Issues: No Anes. Related Issues
== END 2022-05-24 09:40 | disposition home or self-care (01) | DRG 621 ==
LOC: HO.SSSA 13:07 → HO.S3 14:20
PROVIDERS: Physician Assistant Surgical; Admitting Provider Surgery; Visit Provider Surgery
PROC: 0DB64Z3 Excision of Stomach, Percutaneous Endoscopic Approach, Vertical (ICD-10-PCS; CPT 43845; principal; 2022-05-23 10:10)
DX: E66.01 Morbid (severe) obesity due to excess calories (principal); K74.00 Hepatic fibrosis, unspecified; F41.9 Anxiety disorder, unspecified; F32.A Depression, unspecified; Z20.822 Contact with and (suspected) exposure to COVID-19; Z68.32 Body mass index [BMI] 32.0-32.9, adult; Z86.16 Personal history of COVID-19; Z88.0 Allergy status to penicillin; Z79.51 Long term (current) use of inhaled steroids; Z79.899 Other long term (current) drug therapy
CPT/HCPCS: 36415; 80048; 80053; 80061; 83036; 84443; 85014; 85018; 85025; 85610; 85730; 86140; 86850; 86900; 86901; 87635; 88307; 88342; A4649; C9088; J0131; J1100; J1170; J1956; J2250; J2405; J2550; J2765; J2795; J3010

== ENCOUNTER → 2022-06-14 16:08 | Outpatient (BNVA) | payer OTHER, SELFPAY | PROVIDERS: Visit Provider Dietitian, Registered | DX: E66.9 Obesity, unspecified (principal); Z68.30 Body mass index [BMI] 30.0-30.9, adult | CPT/HCPCS: 97803 ==

== ENCOUNTER → 2022-06-23 13:16 | Outpatient (BNVA) | payer OTHER, SELFPAY | PROVIDERS: Visit Provider Dietitian, Registered | DX: E66.9 Obesity, unspecified (principal) | CPT/HCPCS: 97803 ==

== ENCOUNTER → 2022-07-05 16:14 | Outpatient (BNVA) | payer OTHER, SELFPAY | PROVIDERS: Visit Provider Dietitian, Registered | DX: E66.9 Obesity, unspecified (principal); Z68.29 Body mass index [BMI] 29.0-29.9, adult | CPT/HCPCS: 97803 ==

== ENCOUNTER → 2022-07-28 16:01 | Outpatient (BNVA) | payer OTHER, SELFPAY | PROVIDERS: Visit Provider Dietitian, Registered | DX: E66.9 Obesity, unspecified (principal) | CPT/HCPCS: 97803 ==

== ENCOUNTER → 2022-08-23 16:13 | Outpatient (BNVA) | payer OTHER, SELFPAY | PROVIDERS: Visit Provider Dietitian, Registered | DX: E66.9 Obesity, unspecified (principal) | CPT/HCPCS: 97803 ==

== ENCOUNTER → 2022-10-04 16:23 | Outpatient (BNVA) | payer OTHER, SELFPAY | PROVIDERS: Visit Provider Dietitian, Registered | DX: Z98.84 Bariatric surgery status (principal) | CPT/HCPCS: 97803 ==

== ENCOUNTER → 2022-10-12 15:58 | Outpatient (BNVA) | payer OTHER, SELFPAY | PROVIDERS: Visit Provider Physician Assistant Surgical | DX: E66.9 Obesity, unspecified (principal) ==

== ENCOUNTER 2022-10-25 07:37 | Outpatient (REF) | payer OTHER, SELFPAY ==
[2022-10-25 07:51] LABS: MANUAL DIFF FLAG NO
[2022-10-25 08:33] LABS: Basophils Percent Auto 0.4 % (0-2); Eosinophils Absolute Auto 0.2 X10*3/uL (0.0-0.4); Eosinophils Percent Auto 3.4 % (0-4); Hematocrit 41.5 % (37.0-47.0); Hemoglobin 13.5 g/dl (12.0-16.0); Imm Gran Abs Auto 0.01 X10*3/uL (0.00-0.03); Imm Gran Pct Auto 0.2 % (0.0-0.4); Lymphocytes Absolute Auto 1.7 X10*3/uL (1.2-4.9); Lymphocytes Percent Auto 39.1 % (20-40); Mean Corpuscular HGB Conc 32.5 g/dl (31.0-35.0); Mean Corpuscular Hemoglobin 28.3 pg (27.0-33.0); Mean Platelet Volume 10.4 fL (9.4-12.3); Monocytes Absolute Auto 0.5 X10*3/uL (0.1-1.2); Monocytes Percent Auto 11.2 % (2-11); Neutrophils Percent Auto 45.7 % (45-73); Platelet Count 265 X10*3/uL (160-400); Red Blood Count 4.77 X10*6/uL (4.20-5.50); Red Cell Distribution Width 13.7 % (11.0-16.0); White Blood Count 4.5 X10*3/uL (4.8-10.8)
[2022-10-25 09:00] LABS: Estimated Average Glucose 117 mg/dL; Hemoglobin A1c % 5.7 %
[2022-10-25 09:09] LABS: Alanine Aminotransferase 17 U/L (0-31); Albumin Level 4.4 g/dL (3.5-5.0); Alkaline Phosphatase 74 U/L (39-117); Anion Gap 14 (12-20); Aspartate Amino Transferase 20 U/L (5-31); Bilirubin Total 1.5 mg/dL (0.0-1.0); Blood Urea Nitrogen 24 mg/dL (9-16); C Reactive Protein < 0.10 mg/dL (< or = 0.50); Calcium 9.9 mg/dL (8.4-10.2); Carbon Dioxide 25 mmol/L (22-29); Chloride 107 mmol/L (96-108); Cholesterol 194 mg/dL; Estimated Glomerular Filt Rate > 60; Glucose Random 86 mg/dL (60-115); HDL Cholesterol 47 mg/dL; Iron 101 mcg/dL (30-160); LDL Cholesterol Calculated 126 mg/dl; Percent Iron Saturation 39 % (15-50); Sodium 142 mmol/L (135-145); Total Iron Binding Capacity 261 mcg/dL (228-428); Total Protein 6.7 g/dL (6.5-8.0); Triglycerides 107 mg/dL; Unsaturated Iron Binding 160 ug/dL
[2022-10-25 09:34] LABS: Ferritin 216 ng/mL (10-250); Insulin 8 uU/mL (2-29); TSH reflex Free T4 2.75 uIU/mL (0.32-4.0); Vitamin D 25-OH Total 77.1 ng/mL (>30)
[2022-10-25 09:41] LABS: Folate 18.2 ng/mL (> or = 4.0); Vitamin B12 1015 pg/mL (200-900)
[2022-10-26 15:39] LABS: Calcium (PTHI) 10.4 mg/dL (8.6-10.4); PTHI 46 pg/mL (16-77)
[2022-10-28 15:29] LABS: Zinc 84 mcg/dL (60-130)
[2022-10-30 08:36] LABS: Vitamin B1 29 nmol/L (8-30)
[2022-10-30 10:03] LABS: Vitamin A 49 mcg/dL (38-98)
== END 2022-10-25 07:38 | disposition home or self-care (01) ==
LOC: HO.LAB 07:37
PROVIDERS: PCP Family Medicine; Visit Provider Physician Assistant Surgical
DX: Z98.84 Bariatric surgery status (principal)
CPT/HCPCS: 36415; 80053; 80061; 82306; 82607; 82728; 82746; 83036; 83525; 83540; 83970; 84425; 84443; 84590; 84630; 85025; 86140

== ENCOUNTER → 2023-02-01 16:12 | Outpatient (BNVA) | payer OTHER, SELFPAY | PROVIDERS: PCP Family Medicine; Visit Provider Dietitian, Registered | DX: E66.9 Obesity, unspecified (principal); Z68.23 Body mass index [BMI] 23.0-23.9, adult; Z98.84 Bariatric surgery status; Z90.3 Acquired absence of stomach [part of]; Z71.3 Dietary counseling and surveillance | CPT/HCPCS: 97803 ==

== ENCOUNTER → 2023-06-22 16:21 | Outpatient (BNVA) | payer OTHER, SELFPAY | PROVIDERS: PCP Family Medicine; Visit Provider Dietitian, Registered | DX: E66.9 Obesity, unspecified (principal); Z68.24 Body mass index [BMI] 24.0-24.9, adult; Z98.84 Bariatric surgery status; Z71.3 Dietary counseling and surveillance | CPT/HCPCS: 97803 ==

== ENCOUNTER 2023-08-01 15:46 | Outpatient (AMB) | payer OTHER, SELFPAY ==
--- NOTE | 2023-08-01 15:59 | MHC.OFFVISWM ---
Intake VS Expanded 08/01/23 16:06 BP 118/80 Blood Pressure Location Rt brachial Blood Pressure Position Sitting Pulse 74 Pulse Source Pulse Oximeter Temp 96.4 F L Temperature Source Tympanic Pulse Oximetry 98 Oxygen Delivery Method Room Air Height 5 ft 9 in Weight 170 lb 6.4 oz BMI 25.2 Body Fat % 37.3 Body Fat Mass 75.6 Fat Free Mass 106.8 Visceral Fat Rating 8.0 Body Water % 44.4 Body Water Mass 75.6 Muscle Mass/Score 101.2 Basal Metabolic Rate/Score 1,455 Intake Visit Reasons: (OV) PO LSG 05/23/22 Allergies Penicillins Adverse Reaction (Severe, Verified 08/01/23 16:02) Rash HPI HPI Comments History of Present Illness Details Very pleasant 57-year-old female, 1 year 2 months post sleeve gastrectomy performed on 05/23/2022. She states she has been feeling great. Preop weight 228# weight at 3wks PO 205# Weight at 6wks 197# Last weight at 3 MO PO 179 weight at 6MO 170# weight at last appt at 9MO PO 156# current weight 170.4 She states that her goal is to lose approximately another 15 lb to reach 155 pounds She had to do a lot of travelling over the summer and was unable to fit in the shakes and bars. The neck right she states that she saw her primary care physician at the beginning of June and had blood work done at that time. She states that she will get our office a copy of the blood work and then we can supplement with any additional blood work that she may need, checking vitamin labs, etc.. Meal plan: Pure protein powder 1 scoop in 8 oz almond milk x 2 sometimes three. ( depending on what she had to eat during the day. ) Quest bar-daily baby bel cheese 1 HB egg sometimes rice cakes. meal protein and veggies, not measuring drinkin oz fluids. Exercise plan Treadmill 45 min, speed 3.1 incline 2.5-9, burning 350-400 4-7 days per week. [facility] Medical History Nephrolithiasis History of COVID-19 Obesity Seasonal asthma HTN (hypertension) Anxiety and depression Pre-op evaluation BMI 37.0-37.9, adult BMI 39.0-39.9,adult Surgical History Hx of laparoscopic partial gastrectomy Hx of rhinoplasty Hx of tonsillectomy Hx of oral surgery Hx of colonoscopy Social History Are you a primary laboratory animal caretaker to a significant other at home: No Do you presently have visiting nurse or other home services: No Patient Tobacco Use Status: Never used Tobacco service: No Current occupational status: employed Review of Systems Const All systems reviewed & are unremarkable except as noted in HPI and below Physical Exam Vital Signs: Last Vital Signs Temp 96.4 F L 08/01/23 16:06 Pulse 74 08/01/23 16:06 BP 118/80 08/01/23 16:06 Pulse Ox 98 08/01/23 16:06 Oxygen Delivery Method Room Air 08/01/23 16:06 BMI result Body Mass Index 25.2 Const General: healthy appearing and no acute distress Resp Effort & Inspection: normal respiratory effort Auscultation: clear to auscultation bilaterally Cardio Rate: regular rate Rhythm: regular rhythm GI Auscultation: normal bowel sounds Extrem General: Yes normal to inspection Assessment & Plan Assessment & Plan (1) Overweight (BMI 25.0-29.9): Code(s): E66.3 - Overweight Plan: Given her stated goal of wanting to achieve a weight of 155 lb, recommend eliminating the 3rd shake altogether. She will additionally begin to journal and try to identify when she is snacking more. Should she find that she is hungry after dinner she will consider doing 1 scoop in her 1st shake half scoop in the 2nd shake and having a 3rd shake with half scoop. She will follow up with registered dietitianDionne in approximately 3 weeks for further recommendations regarding her meal plan. Regarding her lab data, she will obtain her recent labs from her primary care physician's office and bring them to our office. We will supplement with any additional labs as needed. Regarding her exercise, she was encouraged to try to maintain 5-6 days per week as she is able. Coding Level of Care Code Est Pt Level 3 (51256) Diagnoses Overweight (BMI 25.0-29.9) E66.3
[2023-08-01 16:06] VITALS: BP 118/80; PULSE 74; TEMP 35.8; O2SAT 98; BMI 25.2
== END 2023-08-01 16:48 | disposition home or self-care (01) ==
PROVIDERS: PCP Family Medicine; Visit Provider Physician Assistant Surgical
DX: E66.3 Overweight (principal)
CPT/HCPCS: 99213

== ENCOUNTER → 2023-08-01 15:46 | Outpatient (BNVA) | payer OTHER, SELFPAY | PROVIDERS: PCP Family Medicine; Visit Provider Physician Assistant Surgical ==

== ENCOUNTER → 2023-08-27 13:30 | Outpatient (BNVA) | payer OTHER, SELFPAY | PROVIDERS: PCP Family Medicine; Visit Provider Dietitian, Registered | DX: E66.9 Obesity, unspecified (principal); Z98.84 Bariatric surgery status; Z71.3 Dietary counseling and surveillance | CPT/HCPCS: 97803 ==